=== PATIENT | female | born 1995 | race Hispanic/Latino ===

== ENCOUNTER 2017-08-20 08:33 | Observation (INO) | payer MEDICAID ==
[2017-08-20 10:48] LABS: APPEARANCE,URINE Clear (CLEAR); BILIRUBIN,URINE Negative (NEGATIVE); COLOR,URINE Yellow (YELLOW); GLUCOSE, URINE (UA) Negative (NEGATIVE); KETONES,URINE Negative (NEGATIVE); LEUKOCYTE ESTERASE ,URINE Moderate (NEGATIVE); NITRATE,URINE Negative (NEGATIVE); OCCULT BLOOD,URINE Negative (NEGATIVE); PH,URINE 8.5 (5.0-8.0); PROTEIN,URINE Negative (NEGATIVE); UROBILINOGEN,URINE 0.2 mg/dL (0.2-1.0)
[2017-08-20 10:54] LABS: AMPHET/METH SCREEN,URINE NEGATIVE (NEGATIVE); BARBITURATE SCREEN, URINE NEGATIVE (NEGATIVE); BENZODIAZEPINES SCREEN,URINE NEGATIVE (NEGATIVE); CANNABINOID SCREEN,URINE NEGATIVE (NEGATIVE); COCAINE SCREEN,URINE NEGATIVE (NEGATIVE); OPIATE SCREEN,URINE NEGATIVE (NEGATIVE); PHENCYCLIDINE SCREEN,URINE NEGATIVE (NEGATIVE)
[2017-08-20 11:11] LABS: BACTERIA,URINE Few /HPF (None Seen)
[2017-08-20 11:12] LABS: RBC,URINE 0-1 /HPF (0-1)
== END 2017-08-20 10:55 | disposition home or self-care (01) ==
LOC: EDH 08:33 → LDH 08:34
PROVIDERS: ADMIT Specialist; ATTEND Specialist
DX: O26.893 Other specified pregnancy related conditions, third trimester (principal); R10.30 Lower abdominal pain, unspecified; Z3A.36 36 weeks gestation of pregnancy
CPT/HCPCS: 76819; 80305; 81001; 99285; G0378 ×2

== ENCOUNTER 2017-08-27 02:34 | Inpatient (IN) | payer MEDICAID ==
[2017-08-27] VITALS (12 sets, daily range): BP systolic 106–124; BP diastolic 57–87
[2017-08-27] MEDS ORDERED: LACTATED RINGERS 1000ML 1,000 ML IV PRN (03:03)
[2017-08-27] MEDS ORDERED: ROPIVACAINE 0.2%200ML EPIDURAL 200 ML EP SCH ×2 (03:15→06:45)
[2017-08-27] MEDS ORDERED: EPHEDRINE SULFATE 50 MG/ML AMPULE IVP PRN ×2 (03:15→06:30)
[2017-08-27] MEDS ORDERED: LACTATED RINGERS 500 ML 500 ML IV PRN (03:15)
[2017-08-27] MEDS ORDERED: NALOXONE HCL 0.4 MG/1 ML ML IV PRN (03:15)
[2017-08-27 03:17] LABS: HEMATOCRIT 34.2 % (36-48); MEAN CORPUSCULAR HEMOGLOBIN 27.1 pg (27.0-33.0); MEAN CORPUSCULAR HGB CONC 34.1 g/dL (32.0-36.0); MEAN CORPUSCULAR VOLUME 79.5 fL (79-99); PLATELET COUNT (AUTO) 268 K/uL (130-400); RED CELL DISTRIBUTION WIDTH 12.9 % (11.0-15.5); WHITE BLOOD COUNT (AUTO) 14.1 K/uL (4.8-10.8)
[2017-08-27] MEDS ORDERED: OXYTOCIN 10 USP UNITS/ML ONE ×2 (03:22→09:04)
[2017-08-27] MEDS ORDERED: LACTATED RINGERS 1000ML 1,000 ML IV ONE (03:22)
[2017-08-27 05:05] LABS: APPEARANCE,URINE Clear (CLEAR); BILIRUBIN,URINE Negative (NEGATIVE); COLOR,URINE Yellow (YELLOW); GLUCOSE, URINE (UA) Negative (NEGATIVE); KETONES,URINE Negative (NEGATIVE); LEUKOCYTE ESTERASE ,URINE Negative (NEGATIVE); NITRATE,URINE Negative (NEGATIVE); OCCULT BLOOD,URINE Nonhemolyzed Trace (NEGATIVE); PH,URINE >=9.0 (5.0-8.0); PROTEIN,URINE Trace (NEGATIVE)
[2017-08-27 05:13] LABS: AMPHET/METH SCREEN,URINE NEGATIVE (NEGATIVE); BARBITURATE SCREEN, URINE NEGATIVE (NEGATIVE); BENZODIAZEPINES SCREEN,URINE NEGATIVE (NEGATIVE); CANNABINOID SCREEN,URINE NEGATIVE (NEGATIVE); COCAINE SCREEN,URINE NEGATIVE (NEGATIVE); OPIATE SCREEN,URINE NEGATIVE (NEGATIVE); PHENCYCLIDINE SCREEN,URINE NEGATIVE (NEGATIVE)
[2017-08-27 05:16] LABS: BACTERIA,URINE None Seen /HPF (None Seen); SQUAMOUS EPITHELIAL CELL,UR Rare /LPF (0-2); WBC,URINE None Seen /HPF (0-1)
[2017-08-27] MEDS ORDERED: ACETAMINOPHEN-CODEINE 300/30MG TAB PO PRN (06:00)
[2017-08-27] MEDS ORDERED: LANOLIN 30GM OINTMENT TP PRN (06:00)
[2017-08-27] MEDS ORDERED: WITCH HAZEL 1 PAD TP PRN (06:00)
[2017-08-27] MEDS ORDERED: DIPH,PERTUSS(ACELL),TET VAC/PF 0.5 ML VIAL IM PRN (06:00)
[2017-08-27] MEDS ORDERED: BENZOCAINE/LANOLIN/ALOE VERA 60 ML AEROSOL TP PRN (06:00)
[2017-08-27] MEDS ORDERED: ONDANSETRON HCL 4 MG/2 ML VIAL IVP PRN ×2 (06:30)
[2017-08-27] MEDS ORDERED: HYDROCODONE/ACETAMINOPHEN 5/325 MG TAB PO PRN ×2 (06:30)
[2017-08-27] MEDS ORDERED: METOCLOPRAMIDE 10 MG/2 ML VIAL IVP PRN (06:30)
[2017-08-27] MEDS ORDERED: PROMETHAZINE HCL 25 MG/ML 1ML AMPULE IM PRN (06:30)
[2017-08-27] MEDS ORDERED: ONDANSETRON HCL 4 MG/2 ML 8 MG in SODIUM CHLORIDE 0.9% 50 ML IVP NR (06:30)
[2017-08-27] MEDS ORDERED: MORPHINE SULFATE 2 MG/ML 1ML SYG IVP PRN (06:30)
[2017-08-27] MEDS ORDERED: NALOXONE HCL 0.4 MG/1 ML ML IVP PRN ×2 (06:30)
[2017-08-27] MEDS ORDERED: DiphenhydrAMINE HCL 50 MG/ML VIAL IVP PRN (06:30)
[2017-08-27] MEDS: OXYTOCIN-LR 20 UNITS/1000 ML 1,000 ML IV SCH (06:59)
[2017-08-27] MEDS ORDERED: PREN-154 PO (07:34)
[2017-08-27] MEDS: DOCUSATE SODIUM 100 MG CAP PO SCH ×2 (08:32→20:43)
[2017-08-27] MEDS: IBUPROFEN 800 MG TAB PO PRN ×2 (08:33→15:41)
[2017-08-28 03:36] VITALS: BP 96/57
[2017-08-28] MEDS: IBUPROFEN 800 MG TAB PO PRN ×2 (04:22→13:36)
[2017-08-28] MEDS: OXYTOCIN-LR 20 UNITS/1000 ML 1,000 ML IV SCH (06:00)
[2017-08-28 07:23] LABS: HEPATITIS Bs ANTIGEN SCREEN P Negative (Negative)
[2017-08-28 07:56] VITALS: BP 99/61
[2017-08-28] MEDS: DOCUSATE SODIUM 100 MG CAP PO SCH (08:42)
[2017-08-28 11:46] VITALS: BP 111/61
== END 2017-08-28 13:40 | disposition home or self-care (01) | DRG 560 ==
LOC: EDH 02:34 → OBSVTOIN 02:35 → LDH 02:35 → WSH 06:00
PROVIDERS: ADMIT Specialist; ATTEND Specialist
PROC: 10E0XZZ Delivery of Products of Conception, External Approach (ICD-10-PCS; principal; 2017-08-27)
PROC: 3E0R3BZ Introduction of Anesthetic Agent into Spinal Canal, Percutaneous Approach (ICD-10-PCS; 2017-08-27)
PROC: 00HU33Z Insertion of Infusion Device into Spinal Canal, Percutaneous Approach (ICD-10-PCS; 2017-08-27)
PROC: 10907ZC Drainage of Amniotic Fluid, Therapeutic from Products of Conception, Via Natural or Artificial Opening (ICD-10-PCS; 2017-08-27)
PROC: 3E0234Z Introduction of Serum, Toxoid and Vaccine into Muscle, Percutaneous Approach (ICD-10-PCS; 2017-08-27)
DX: O99.344 Other mental disorders complicating childbirth (principal); F41.9 Anxiety disorder, unspecified; Z37.0 Single live birth; Z3A.37 37 weeks gestation of pregnancy; Z23 Encounter for immunization
CPT/HCPCS: 36415; 80305; 81001; 85027; 86592; 86850; 86900; 86901; 87340; 90715; A4314; J2590; J7120

== ENCOUNTER 2018-05-23 06:48 | Day surgery (SDC) | payer MEDICAID ==
[2018-05-18 16:53] VITALS: BP 116/73
[2018-05-18 16:54] LABS: BASOPHILS % (AUTO) 0.7 % (0.0-5.0); EOSINOPHILS % (AUTO) 1.3 % (0.0-8.0); HEMATOCRIT 38.2 % (36-48); LYMPHOCYTES % (AUTO) 23.1 % (21.0-51.0); MEAN CORPUSCULAR HEMOGLOBIN 24.5 pg (27.0-33.0); MEAN CORPUSCULAR HGB CONC 32.7 g/dL (32.0-36.0); MEAN CORPUSCULAR VOLUME 74.9 fL (79-99); MONOCYTES % (AUTO) 4.5 % (3.0-13.0); NEUTROPHILS % (AUTO) 70.4 % (40.0-77.0); PLATELET COUNT (AUTO) 352 K/uL (130-400); RED CELL DISTRIBUTION WIDTH 15.8 % (11.0-15.5); WHITE BLOOD COUNT (AUTO) 9.2 K/uL (4.8-10.8)
[~2018-05-23] VITALS: Ht 167.6 cm; Wt 86.0 kg
[2018-05-23] VITALS (14 sets, daily range): BP systolic 117–131; BP diastolic 65–84
[~2018-05-23 06:48] MED LIST: LACTATED RINGERS 1000ML 1,000 ML IV SCH; PREN-154 PO
[2018-05-23] MEDS ORDERED: LIDOCAINE PF 2% 5ML ABBOJECT ONE (07:39)
[2018-05-23] MEDS ORDERED: DEXAMETHASONE SOD PHOSPHATE 10MG/ML 1ML VIAL ONE ×2 (07:39→08:30)
[2018-05-23] MEDS ORDERED: PROPOFOL 10 MG/ML 20ML VIAL IV ONE (07:40)
[2018-05-23] MEDS ORDERED: NEOSTIGMINE 5MG/5ML SYR IV ONE (07:40)
[2018-05-23] MEDS ORDERED: ROCURONIUM 10MG/1ML SYR 10 MG/ML ML ONE (07:40)
[2018-05-23] MEDS ORDERED: FENTANYL CITRATE PF 50 MCG/1 ML 2ML VIAL ONE ×2 (07:40→08:30)
[2018-05-23] MEDS ORDERED: GLYCOPYRROLATE 1 MG/5 ML SYRINGE ONE (07:40)
[2018-05-23] MEDS ORDERED: MIDAZOLAM HCL 1 MG/ML 2ML VIAL ONE (07:40)
[2018-05-23] MEDS ORDERED: ONDANSETRON HCL 4 MG/2 ML VIAL ONE (07:40)
[2018-05-23] MEDS ORDERED: LIDOCAINE HCL MPF 1% 5ML VIAL ONE (08:30)
[2018-05-23] MEDS ORDERED: MEPERIDINE-PF 25 MG/ML SYG ONE ×2 (09:00→09:13)
== END 2018-05-23 10:50 | disposition home or self-care (01) ==
LOC: DAH 06:48
PROVIDERS: ATTEND Specialist
DX: Z30.2 Encounter for sterilization (principal); Z87.891 Personal history of nicotine dependence; F41.9 Anxiety disorder, unspecified; F32.9 Major depressive disorder, single episode, unspecified
CPT/HCPCS: 36415; 58671; 84702; 85025; 86850; 86900; 86901; A4215 ×2; A4264; A4351; A4510; A4600; C1769 ×2; J1100 ×2; J2001; J2175 ×2; J2250; J2405; J2704; J2710; J3010 ×2; J3490 ×2; J7030; J7120